=== PATIENT | male | born 1950 | race Caucasian/White ===

== ENCOUNTER 2017-09-20 12:32 | Inpatient (IN) ==
[2017-09-20] MEDS ORDERED: ENOXAPARIN 100 MG/ML SYRINGE SUBCUT STA (13:34)
[2017-09-20] MEDS ORDERED: ENOXAPARIN 80 MG/0.8 ML SYRINGE SUBCUT ONE (13:53)
[2017-09-20 13:56] LABS: Basophils % 0.4 % (0.0-0.8); Eosinophils # 0.2 10*3/uL (0.0-0.87); Hematocrit 46.1 VOL% (42.0-52.0); Hemoglobin 14.9 GM/DL (14.0-18.0); Immature Granulocytes % 0.2 %; Immature Granulocytes Absolute 0.02 #; Lymphocytes # 0.9 10*3/uL (1.4-4.0); Lymphocytes % 11.3 % (21.2-54.2); Mean Corpuscular HGB Conc 32.3 GM/DL (32-36); Mean Corpuscular Hemoglobin 33 PG (27-34); Mean Corpuscular Volume 100.7 FL (87-102); Mean Platelet Volume 9.1 FL (9.6-12.0); Monocytes # 0.8 10*3/uL (0.11-0.8); Monocytes % 9.6 % (1.7-12.7); Neutrophils # 6.1 10*3/uL (1.4-7.4); Neutrophils % 76.5 % (38.7-73.9); Platelet Count 208 T/CUMM (130-400); Red Blood Count 4.58 MC/CUMM (3.8-5.5); Red Cell Distribution Width 15.7 % (9.3-17.3)
[2017-09-20 14:08] LABS: INR 1.5; PT Patient Result 15.5 SECS; Partial Thromboplastin Time 29.2 SECS (0-40)
[2017-09-20 14:10] LABS: Apearance,Urine CLEAR (Clear); Bilirubin,Urine Negative (Negative); Blood, Urine Moderate mg/dL (Negative); Glucose,Urine (UA) Negative (Negative); Ketones,Urine Negative (Negative); Nitrite,Urine Negative (Negative); Protein,Urine 100 MG/DL; RBC,Urine 19 /HPF (0-4); Urine Color Yellow (Yellow); WBC,Urine 1 /HPF (0-6)
[2017-09-20 14:17] LABS: Alanine Aminotransferase 35 U/L (16-61); Albumin 3.4 G/DL (3.4-5.0); Alkaline Phosphatase 127 U/L (45-117); Aspartate Amino Transferase 35 U/L (0-37); Blood Urea Nitrogen 23 MG/DL (7-18); Glucose 101 MG/DL (74-106); Potassium 3.8 MMOL/L (3.5-5.1); Sodium 143 MMOL/L (136-145); Total Protein 7.1 G/DL (6.4-8.3)
[2017-09-20 14:24] LABS: Troponin I Only 0.093 NG/ML (0.00-0.045)
[2017-09-20] MEDS: FUROSEMIDE 40 MG/4 ML VIAL IV SCH (17:59)
[2017-09-20] MEDS: POTASSIUM CHLORIDE 20 MEQ TABLET PO SCH (17:59)
[2017-09-20] MEDS: PANTOPRAZOLE 40 MG TABLET PO SCH (18:06)
[2017-09-20] MEDS: WARFARIN 5 MG TABLET PO SCH (18:06)
[2017-09-20] MEDS: METOPROLOL TARTRATE 25 MG TABLET PO SCH (20:42)
[2017-09-20] MEDS: AMIODARONE 200 MG TABLET PO SCH (20:42)
[2017-09-20] MEDS: ATORVASTATIN 10 MG TABLET PO SCH (20:42)
[2017-09-20] MEDS: clonazePAM 0.5 MG TABLET PO SCH (20:42)
[2017-09-21] MEDS: ENOXAPARIN 80 MG/0.8 ML SYRINGE SUBCUT SCH ×3 (00:24→21:26)
[2017-09-21 04:53] LABS: Basophils % 0.5 % (0.0-0.8); Eosinophils # 0.2 10*3/uL (0.0-0.87); Eosinophils % 3.2 % (0.00-10.9); Hematocrit 41.1 VOL% (42.0-52.0); Hemoglobin 13.1 GM/DL (14.0-18.0); Immature Granulocytes % 0.3 %; Immature Granulocytes Absolute 0.02 #; Lymphocytes # 0.8 10*3/uL (1.4-4.0); Lymphocytes % 13.6 % (21.2-54.2); Mean Corpuscular HGB Conc 31.9 GM/DL (32-36); Mean Corpuscular Hemoglobin 32 PG (27-34); Mean Corpuscular Volume 101.7 FL (87-102); Mean Platelet Volume 9.6 FL (9.6-12.0); Monocytes # 0.7 10*3/uL (0.11-0.8); Monocytes % 10.7 % (1.7-12.7); Neutrophils # 4.4 10*3/uL (1.4-7.4); Neutrophils % 71.7 % (38.7-73.9); Platelet Count 181 T/CUMM (130-400); Red Blood Count 4.04 MC/CUMM (3.8-5.5); Red Cell Distribution Width 15.5 % (9.3-17.3); White Blood Count 6.2 T/CUMM (4-12)
[2017-09-21 05:03] LABS: INR 1.5; PT Patient Result 15.4 SECS; Partial Thromboplastin Time 35.5 SECS (0-40)
[2017-09-21 05:22] LABS: Calcium 8.7 MG/DL (8.5-10.1); Osmolality,Calculated 291.6 MOS/KG (273-304); Potassium 3.3 MMOL/L (3.5-5.1)
[2017-09-21] MEDS: POTASSIUM CHLORIDE 20 MEQ TABLET PO SCH (09:30)
[2017-09-21] MEDS: clonazePAM 0.5 MG TABLET PO SCH ×2 (09:30→21:25)
[2017-09-21] MEDS: AMIODARONE 200 MG TABLET PO SCH ×2 (09:30→21:25)
[2017-09-21] MEDS: ALLOPURINOL 100 MG TABLET PO SCH (09:30)
[2017-09-21] MEDS: METOPROLOL TARTRATE 25 MG TABLET PO SCH ×2 (09:30→21:25)
[2017-09-21] MEDS: DIGOXIN 0.125 MG TABLET PO SCH (10:03)
[2017-09-21] MEDS: FUROSEMIDE 40 MG/4 ML VIAL IV SCH (10:03)
[2017-09-21] MEDS ORDERED: ENOXAPARIN 80 MG/0.8 ML SYRINGE SUBCUT SCH (14:00)
[2017-09-21] MEDS: WARFARIN 5 MG TABLET PO SCH (17:20)
[2017-09-21] MEDS: PANTOPRAZOLE 40 MG TABLET PO SCH (17:20)
[2017-09-21] MEDS: ATORVASTATIN 10 MG TABLET PO SCH (21:25)
[2017-09-22 07:07] LABS: Basophils % 0.5 % (0.0-0.8); Eosinophils # 0.2 10*3/uL (0.0-0.87); Eosinophils % 3.4 % (0.00-10.9); Immature Granulocytes % 0.3 %; Immature Granulocytes Absolute 0.02 #; Lymphocytes # 0.7 10*3/uL (1.4-4.0); Mean Corpuscular HGB Conc 33.3 GM/DL (32-36); Mean Corpuscular Hemoglobin 33 PG (27-34); Mean Corpuscular Volume 99.5 FL (87-102); Mean Platelet Volume 9.4 FL (9.6-12.0); Monocytes # 0.6 10*3/uL (0.11-0.8); Monocytes % 9.6 % (1.7-12.7); Neutrophils # 4.3 10*3/uL (1.4-7.4); Neutrophils % 74.2 % (38.7-73.9); Platelet Count 174 T/CUMM (130-400); Red Blood Count 4.22 MC/CUMM (3.8-5.5); Red Cell Distribution Width 15.6 % (9.3-17.3); White Blood Count 5.8 T/CUMM (4-12)
[2017-09-22 07:20] LABS: INR 1.6; PT Patient Result 16.5 SECS; Partial Thromboplastin Time 34.5 SECS (0-40)
[2017-09-22 08:00] LABS: Bilirubin,Total 0.7 MG/DL (0.2-1.0); Calcium 8.5 MG/DL (8.5-10.1); Osmolality,Calculated 291.6 MOS/KG (273-304); Potassium 3.8 MMOL/L (3.5-5.1); Total Protein 6.1 G/DL (6.4-8.3)
[2017-09-22] MEDS: AMIODARONE 200 MG TABLET PO SCH (08:41)
[2017-09-22] MEDS: FUROSEMIDE 40 MG/4 ML VIAL IV SCH (08:41)
[2017-09-22] MEDS: DIGOXIN 0.125 MG TABLET PO SCH (08:41)
[2017-09-22] MEDS: ENOXAPARIN 80 MG/0.8 ML SYRINGE SUBCUT SCH ×2 (08:41→18:20)
[2017-09-22] MEDS: METOPROLOL TARTRATE 25 MG TABLET PO SCH (08:42)
[2017-09-22] MEDS: POTASSIUM CHLORIDE 20 MEQ TABLET PO SCH (08:42)
[2017-09-22] MEDS: clonazePAM 0.5 MG TABLET PO SCH (08:42)
[2017-09-22] MEDS: ALLOPURINOL 100 MG TABLET PO SCH (08:42)
[2017-09-22 17:17] VITALS: BP 151/73
[2017-09-22] MEDS ORDERED: WARFARIN 7.5 MG TABLET PO ONE (18:00)
== END 2017-09-22 18:55 | disposition home or self-care (01) | DRG 176 ==
LOC: N.ED 12:32 → N.EDINP 14:55 → SUATTDRO 14:55 → N.4E 17:30
PROVIDERS: ADMIT Internal Medicine; ATTEND Internal Medicine Infectious Disease